=== PATIENT | male | born 1990 | race American Indian/Alaskan Native ===

== ENCOUNTER 2018-09-13 09:30 | Outpatient (CLI) | payer BC | END 2018-09-13 09:31 | disposition home or self-care (01) | LOC: RAD 09:30 | DX: E80.6 Other disorders of bilirubin metabolism (principal); R74.8 Abnormal levels of other serum enzymes ==

== ENCOUNTER 2018-11-06 06:31 | Outpatient (CLI) | payer BC | END 2018-11-06 06:32 | disposition home or self-care (01) | LOC: CARDIO 06:31 | DX: R07.9 Chest pain, unspecified (principal); E78.00 Pure hypercholesterolemia, unspecified ==